=== PATIENT | male | born 1965 | race Caucasian/White ===

== ENCOUNTER 2016-11-13 21:33 | Emergency (ER) | payer BC ==
[2016-11-13] MEDS ORDERED: SODIUM CHLORIDE 0.9% 2,000 ML ONE (22:35)
== END 2016-11-14 02:11 | disposition home or self-care (01) ==
LOC: ER 21:33
DX: I95.1 Orthostatic hypotension (principal); E86.0 Dehydration
CPT/HCPCS: 36415; 80053; 81001; 82553; 82947; 84484; 85025; 93005; 96360; 96361